=== PATIENT | male | born 1980 | race Caucasian/White ===

== ENCOUNTER 2025-02-02 13:39 | Outpatient (REF) | payer OTHER, SELFPAY ==
--- NOTE | 2025-02-02 13:46 | EMG_ITS ---
Chief complaint: Left ulnar wrist laceration end of October 2024, then noted numbness on left 1st to 3rd digits around November Reason for referral: Evaluate for Carpal Tunnel Syndrome Referred by: Dr. Madera Procedure done: Left upper extremity NCS/EMG Precautions and/or limitations: None The limb temperature was monitored continuously and remained between 32-36 degrees C during the performance of the NCS. Nerve Conduction Studies Anti Sensory Summary Table ?Stim Site NR Onset (ms) Norm Onset (ms) Peak (ms) Norm Peak (ms) O-P Amp (?V) Norm O-P Amp Site1 Site2 Delta-0 (ms) Dist (cm) Steven (m/s) Norm Steven (m/s) Left Median Anti Sensory (2nd Digit) Wrist ? 2.4 3.3 <3.6 52.1 >10 Wrist 2nd Digit 2.4 14.0 58 Left Radial Anti Sensory (Thumb) Forearm ? 1.5 2.0 <3.1 64.4 Forearm Thumb 1.5 10.0 67 Left Ulnar Anti Sensory (5th Digit) Wrist ? 2.5 3.3 <3.7 51.3 >15.0 Wrist 5th Digit 2.5 14.0 56 Motor Summary Table ?Stim Site NR Onset (ms) Norm Onset (ms) O-P Amp (mV) Norm O-P Amp iAmp (mV) Amp (1st) (%) Site1 Site2 Delta-0 (ms) Dist (cm) Steven (m/s) Norm Steven (m/s) Left Median Motor (Abd Poll Brev) Wrist ? 3.0 <3.9 8.6 >4.5 10.8 100.0 Elbow Wrist 3.8 21.0 55 >45 Elbow ? 6.8 7.2 9.1 83.7 Left Ulnar Motor (Abd Dig Minimi) Wrist ? 2.7 <3.0 12.9 >5 14.7 100.0 B Elbow Wrist 3.3 20.0 61 >45 B Elbow ? 6.0 12.2 14.0 94.6 A Elbow B Elbow 1.3 10.0 77 >45 A Elbow ? 7.3 12.7 14.6 98.4 EMG ?Side Muscle Nerve Root Ins Act Fibs Psw Amp Dur Poly Recrt Int Pat Comment Left 1stDorInt Ulnar C8-T1 Nml Nml Nml Nml Nml 0 Nml Complete Left FlexCarRad Median C6-7 Nml Nml Nml Nml Nml 0 Nml Complete Left Biceps Musculocut C5-6 Nml Nml Nml Nml Nml 0 Nml Complete Left Triceps Radial C6-7-8 Nml Nml Nml Nml Nml 0 Nml Complete Left Deltoid Axillary C5-6 Nml Nml Nml Nml Nml 0 Nml Complete FINDINGS: All motor and sensory nerves tested showed normal latencies, amplitudes and conduction velocities. Concentric needle EMG was performed in selected muscles of the left upper extremity. Study did not reveal signs of electric abnormalities as shown in the table above. IMPRESSION: 1. This is a normal study. 2. There is no electrodiagnostic evidence for median neuropathy, ulnar neuropathy, brachial plexopathy, or cervical radiculopathy. Thank you for your kind referral. Elvia Cano MD, REMIGIO Board Certified, [place] Board [employer] and Rehabilitation (ABPMR) Board Certified, [place] Board of Electrodiagnostic Medicine (ABEM) CODIN 83099 x 1 extremity MTDD
--- OUTSIDE RECORDS SUMMARY | 2025-02-02 19:09 | XMS_ITS ---
Author Name [facility] Organization Unknown History of Medication Use Medication Directions Dispensed Refills Start Date End Date Stat us amoxicillin-clavula evelia (AUGMENTIN) 875-125 MG per tablet Take 1 tablet by mouth 2 (two) times a day. 11/02/2023 10/27/2024 active No known medications No known medications active varenicline (CHANTIX) 1 MG tablet Take 1 mg by mouth 2 times a day. 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
--- OUTSIDE RECORDS SUMMARY | 2025-02-02 19:09 | XMS_ITS | Clinical Summary ---
Author Organization [facility] Address [address] [place] [address] Care Team Providers Care Mixer Blender Name Role Phone Pcp, No Primary Care Provider Unavailabl e Allergies No known active allergies Medications varenicline (CHANTIX) 1 MG tablet Take 1 mg by mouth 2 times a day. Active Active Problems No known active problems Social History Tobacco Use Types Packs/Day Years Used Date Smoking Tobacco: Never Assessed Sex and Gender Information Value Date Recorded Sex Assigned at Not on file Legal Sex Male 7:53 AM EDT Gender Identity Not on file Sexual Orientation Not on file Last Filed Vital Signs Vital Sign Reading Time Taken Comments Blood Pressure 129/92 10/19/2024 10:44 AM EDT Pulse 94 10/19/2024 10:44 AM EDT Temperature 37 C (98.6 F) 10/19/2024 10:44 AM EDT Respiratory Rate 18 10/19/2024 10:44 AM EDT Oxygen Saturation 99% 10/19/2024 10:44 AM EDT Inhaled Oxygen Concentration - - Weight 63.5 kg (140 lb) 10/19/2024 10:44 AM EDT Height 170.2 cm (5' 7 ) 10/19/2024 10:44 AM EDT Body Mass Index 21.93 10/19/2024 10:44 AM EDT Plan of Treatment Health Maintenance Due Date Last Done Comments Hepatitis C Virus Screening 1980 HIV Screening 1993 DTaP/Tdap/Td Vaccines (1 - Tdap) 11/14/1999 Hepatitis B Vaccines (1 of 3 - 19+ 3-dose series) 11/14/1999 Influenza Vaccine 10/14/2024 COVID-19 Vaccine ( - 2023-2 5 season) 2024 HPV Vaccines (No Doses Required) Completed Pneumococcal Vaccine: Pediat kg (0-5 Years) and At-Risk Patients (6 to 49 Years) Aged Out No longer eligible b ased on patient's age to complete this topic Insurance [facility] INSUR[facility] Care Teams Mixer Blender Relationship Specialty Start Date End Date Pcp, No PCP - General General Medicine 11/02/23
--- OUTSIDE RECORDS SUMMARY | 2025-02-02 19:09 | XMS_ITS | Encounter Summary ---
Author Organization [facility] Address [address] [place] [address] Care Team Providers Care Home Advisor Name Role Phone Pcp, No Primary Care Provider Unavailabl e Encounter Details Date Type Department Care Team (Late st Contact Info) Description 10/07/2024 Scanned Document [address] [place] [phone] Provider, Generic Social History Tobacco Use Types Packs/Day Years Used Date Smoking Tobacco: Never Assessed Sex and Gender Information Value Date Recorded Sex Assigned at Not on file Legal Sex Male 7:53 AM EDT Gender Identity Not on file Sexual Orientation Not on file documented as of this encounter Plan of Treatment Not on file documented as of this encounter Visit Diagnoses Not on filedocumented in this encounter Care Teams Home Advisor Relationship Specialty Start Date End Date Pcp, No PCP - General General Medicine 11/02/23 documented as of this encounter
== END 2025-02-02 13:40 | disposition home or self-care (01) ==
LOC: HO.NEURO 13:39
PROVIDERS: Visit Provider Orthopaedic Surgery
DX: R20.0 Anesthesia of skin (principal); R20.2 Paresthesia of skin
CPT/HCPCS: 95886; 95909

== ENCOUNTER → 2025-02-02 13:46 | Outpatient (BNV) | payer OTHER, SELFPAY | PROVIDERS: Visit Provider Physical Medicine & Rehabilitation | DX: R20.0 Anesthesia of skin (principal) | CPT/HCPCS: 95886; 95909 ==

== ENCOUNTER 2025-02-21 10:24 | Outpatient (AMB) | payer OTHER, SELFPAY ==
--- NOTE | 2025-02-21 10:59 | MHC.OFFVIS ---
Vital Signs 02/21/25 11:01 Height 5 ft 7 in Weight 145 lb BMI 22.7 Intake Visit Reasons: N/P left hand CTS Intake Note: Joby is a 44 year old male right hand dominant who works at [employer] , presents today as a new patient for his Left 1st, 2nd & 3rd digit finger numbness and tingling. At today's visit he states his symptoms come and go, he has a mild sharp pain at his wrist. He tried a cortisone injection approx in Nov with temporary help. He also wears a thumb spica brace that he wears at work. He is currently on light duty with a 10 lbs restriction. EMG done: IMPRESSION: 1. This is a normal study. 2. There is no electrodiagnostic evidence for median neuropathy, ulnar neuropathy, brachial plexopathy, or cervical radiculopathy. Allergies No Known Allergies Allergy (Verified 02/21/25 11:07) HPI HPI N/P left hand CTS: Details: Joby is a 44 year old right hand dominant man who presents for a NCS review of his left hand numbness. He complains of numbness in his left thumb, index, and ring fingers, for ~2 months now. His numbness is mostly on the dorsal aspect of his fingers. He denies any numbness in his middle ring or small fingers this includes dorsal or volar. Symptoms intermittent, but daily. He says he had a steroid injection in the volar aspect of his wrist in November. He received a Partial-thickness injury to his ulnar wrist from a sharp [place] wheel he uses at work. this did not result in any numbness or loss of function. He is currently wearing a thumb spica splint with daily activities. He is also working light duty with a 10lb weight limit. 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 [facility] Social History (Updated 02/21/25 @ 11:07 by KHADIJAH Langston) Current occupational status: employed Current occupation: rt hand/ [employer] Review of Systems Const All systems reviewed & are unremarkable except as noted in HPI and below Physical Exam Vital Signs: BMI result Body Mass Index 22.7 Const General: cooperative, healthy appearing and no acute distress Orientation/consciousness: patient oriented x3 HEENT Head: Yes normocephalic and Yes atraumatic Eyes EOM: EOMs intact bilaterally Resp Effort & Inspection: normal respiratory effort and able to speak in complete sentences Cardio Jugular venous distension: no JVD Skin General skin exam: turgor normal Rashes: no rashes Neuro General: patient oriented x3 Extrem Other: Evaluation of Left Upper Extremity: The patient is alert, oriented, and in no acute distress Neuro: Normal sensation to the tips of all digits Numbness in the superficial radial nerve distribution to the index finger, thumb, and thenar eminence Patient reports Episodes of numbness in the palm and into the fingers, but ending before finger pads Pos Tinel sign over the radial styloid, reproducible. his most significant symptoms extend from the 2nd metacarpal extending towards the index finger around the thumb to the thenar mass. Symptoms are not made worse by thumb compression over the carpal tunnel Vascular: Cap refill brisk ROM: He can make a fist and extend all his digits Skin: No lacerations or abrasions. General: No Ecchymosis. No Erythema or evidence of infection. Nerve Conduction Study: Left-side only IMPRESSION: 1. This is a normal study. 2. There is no electrodiagnostic evidence for median neuropathy, ulnar neuropathy, brachial plexopathy, or cervical radiculopathy. Thank you for your kind referral. Elvia Cano MD, REMIGIO 02/02/25 Psych Appearance: grossly normal Affect: normal affect Attitude: cooperative Assessment & Plan Assessment & Plan (1) Left radial neuritis: Code(s): G56.32 - Lesion of radial nerve, left upper limb Category: Medical (2) Left wrist pain: Code(s): M25.532 - Pain in left wrist Category: Medical Plan Assessment & Plan: 1. Left superficial radial nerve neuritis Onset ~11/2024, etiology unclear I educated him about this condition I discussed treatment options I recommend activity modification & bracing, and he is in agreement He was fitted for a velcro wrist splint, to be worn with daily activities & at work for the next 2 months. 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 If he continues to have numbness I may consider a steroid injection to the superficial radial nerve distribution Scribed for Eva Madera MD by Hernan Stiles, emergency medical service manager, on 02/21/25 at 11:30 AM, EST. Orders: Orders NE electromyogram (EMG) 02/02/25 R20.0 - Anesthesia of skin, R20.2 - Paresthesia of skin NE nerve conduction velocity 02/02/25 R20.0 - Anesthesia of skin, R20.2 - Paresthesia of skin Coding Level of Care Code New Pt Level 4 (74756) Diagnoses Left radial neuritis G56.32 Left wrist pain M25.532
[2025-02-21 11:01] VITALS: BMI 22.7
== END 2025-02-21 12:02 | disposition home or self-care (01) ==
LOC: HO.HOS 10:25
PROVIDERS: Visit Provider Orthopaedic Surgery
DX: G56.32 Lesion of radial nerve, left upper limb (principal); M25.532 Pain in left wrist
CPT/HCPCS: 99203